=== PATIENT | female | born 1965 | race Two or more races ===

== ENCOUNTER 2016-12-28 18:30 | Emergency (ER) | payer MEDICAID ==
[~2016-12-28] VITALS: Ht 165.1 cm; Wt 99.8 kg
[~2016-12-28 18:30] MED LIST: ASPI81CH43 PO; FER325T PO; Furosemide PO; GAB400C PO; POT20T PO; Pantoprazole Sodium Sesquihydr PO; SILD20TA PO; SIMV-13 PO
[2016-12-28 18:39] VITALS: BP 142/102
[2016-12-28 19:26] LABS: Basophils # (auto) 0 uL; Basophils % (auto) 0.9 % (0.0-2.0); CONDITION Y; DEFINITIVE SEE PRINTOUT; Eosinophils # (auto) 0.2 uL; Eosinophils % (auto) 4.5 % (0.0-7.0); Hematocrit 28.1 % (36.0-46.0); Hemoglobin 8.8 g/dL (12.2-16.2); Lymphocytes # (auto) 0.7 uL; Lymphocytes % (auto) 19.3 % (10.0-50.0); Mean Corpuscular Hemoglobin 21.1 pg (28.0-32.0); Mean Corpuscular Hgb Conc. 31.2 g/dL (32.0-36.0); Mean Corpuscular Volume 67.8 fL (80.0-100.0); Mean Platelet Volume 8.2 fL (7.4-10.4); Monocytes # (auto) 0.4 uL; Monocytes % (auto) 11.9 % (0.0-12.0); Neutrophils # (auto) 2.2 uL; Neutrophils % (auto) 63.4 % (37.0-80.0); Platelet Count (auto) 228 10^3/uL (140-450); Red Cell Distribution Width 18.9 % (11.6-16.0); White Blood Cell 3.5 10^3/uL (4.4-10.8)
[2016-12-28 19:31] LABS: Albumin 3.1 g/dL (3.4-5.0); Anion Gap 11 (5-15); Aspartate Aminotransferase 29 U/L (15-37); BUN/Creatinine Ratio 14.7; Blood Urea Nitrogen 11 mg/dL (7-18); Calcium 8.1 mg/dL (8.5-10.1); Carbon Dioxide 22 mmol/L (21-32); Chloride 110 mmol/L (98-107); GFR African American 104 mL/min; GFR Non-African American 86 mL/min; Glucose 88 mg/dL (74-106); Potassium 3.8 mmol/L (3.5-5.1); Sodium 143 mmol/L (136-145)
[2016-12-28 19:36] LABS: Alkaline Phosphatase 258 U/L (45-117); Bilirubin, Total 1.1 mg/dL (0.2-1.0); Total Protein 7.2 g/dL (6.4-8.2)
[2016-12-28 20:14] LABS: Microcytosis Marked; Platelet Estimate Adequate
[2016-12-28 20:15] LABS: Anisocytosis Moderate; Hypochromia Moderate
[2016-12-28 20:16] LABS: Ovalocytes FEW; Stomatocytes Few
== END 2016-12-29 01:23 | disposition left against medical advice (07) ==
LOC: EDBD 18:30 → ER 18:34
DX: R10.9 Unspecified abdominal pain (principal); Z53.21 Procedure and treatment not carried out due to patient leaving prior to being seen by health care provider
CPT/HCPCS: 36415; 80053; 84484; 85025